=== PATIENT | female | born 1980 | race Two or more races ===

== ENCOUNTER 2024-11-25 08:05 | Emergency (ER) | payer MEDICAID, OTHER ==
[~2024-11-25] VITALS: Ht 154.9 cm; Wt 59.0 kg
[2024-11-25 08:07] VITALS: O2SAT 99
[2024-11-25] MEDS: DEXTROSE 50% WATER 50ML SYRINGE IV ONE (09:25)
[2024-11-25 09:54] LABS: BASOPHILS % 0.6 % (0.0-2.0); HEMATOCRIT. 34.1 % (36.0-48.0); HEMOGLOBIN. 11.9 g/dL (12.0-16.0); LYMPHOCYTES % 42.1 % (20.0-50.0); MEAN CORPUSCULAR HEMOGLOBIN 31.9 pg (28.0-32.0); MEAN CORPUSCULAR VOLUME 91.1 fL (81.0-99.0); MEAN PLATELET VOLUME 8.5 fl (7.4-10.4); MONOCYTES % 8.1 % (2.0-8.0); NEUTROPHILS % 45.2 % (40.0-76.0); PLATELET 275 x1000/uL (130-400); RED BLOOD CELL COUNT 3.75 mill/uL (4.2-5.4); WHITE BLOOD COUNT 8.1 x1000/uL (4.5-11.0)
[2024-11-25 09:58] LABS: CHLORIDE 103 mEq/L (98-107); POTASSIUM 3.7 mEq/L (3.5-5.1); SODIUM 135 mEq/L (136-145)
[2024-11-25 09:59] LABS: CALCIUM 8.7 mg/dL (8.7-10.4); CARBON DIOXIDE 23 mEq/L (21-32)
[2024-11-25 10:00] LABS: HCG SCREEN NEGATIVE
[2024-11-25 10:04] LABS: CREATININE 0.9 mg/dL (0.6-1.0); ETHANOL BLOOD < 10 mg/dL (<10); GLUCOSE 294 mg/dL (70-105); UREA NITROGEN BLOOD 23 mg/dL (9-23)
[2024-11-25 10:12] LABS: TROPONIN I HIGH SENSITIVITY < 4 ng/L (3.0-34)
[2024-11-25 13:32] VITALS: BP 126/87; PULSE 89; RESP 16; TEMP 36.7; O2SAT 97
== END 2024-11-25 13:37 | disposition home or self-care (01) ==
LOC: ER 08:05 → CANBEDREQ 12:35 → ER 13:37
DX: E11.649 Type 2 diabetes mellitus with hypoglycemia without coma (principal); I10 Essential (primary) hypertension; Z79.4 Long term (current) use of insulin
CPT/HCPCS: 80048; 80320; 82962; 84703; 83690; 85025; 84484; 36415; 93005; 96374; 99291; Z7610 ×2; G0480